=== PATIENT | male | born 1960 | race Caucasian/White ===

== ENCOUNTER 2019-06-01 11:31 | Outpatient (CLI) | payer BC | END 2019-06-01 11:32 | disposition home or self-care (01) | LOC: CTENTCT 11:31 | PROVIDERS: ATTEND Otolaryngology Plastic Surgery within the Head & Neck | DX: J34.2 Deviated nasal septum (principal) | CPT/HCPCS: 70486 ==

== ENCOUNTER 2019-06-14 13:53 | Day surgery (SDC) | payer BC ==
[2019-06-13 10:55] VITALS: BMI 25.7
[2019-06-14] MEDS ORDERED: Oxymetazoline HCl 0.05% ( 15 ML ) ONE (14:58)
[2019-06-14] MEDS ORDERED: Fentanyl 100 MCG/2 ML VIAL ONE ×2 (15:24→17:51)
[2019-06-14] MEDS ORDERED: Lidocaine 1% w/Epinephrine 1:100K 20 ML VIAL ONE (15:27)
[2019-06-14] MEDS ORDERED: Bacitracin Zinc Ointment 30 gm TUBE ONE (15:49)
--- NOTE | 2019-06-15 11:20 | OP ---
DATE OF PROCEDURE: 06/14/2019 PREOPERATIVE DIAGNOSES: 1. Chronic rhinosinusitis. 2. Nasal septal deviation. 3. Bilateral inferior turbinate hypertrophy. 4. Bilateral nasal polyposis. POST OPERATIVE DIAGNOSES: 1. Chronic rhinosinusitis. 2. Nasal septal deviation. 3. Bilateral inferior turbinate hypertrophy. 4. Bilateral nasal polyposis. PROCEDURES PERFORMED: 1. Bilateral endoscopic total ethmoidectomies. 2. Bilateral endoscopic maxillary antrostomies. 3. Bilateral endoscopic sphenoidotomies. 4. Nasal septoplasty. 5. Bilateral inferior turbinate submucosal resection and coblation. ESTIMATED BLOOD LOSS: 50 mL. COMPLICATIONS: None. ANESTHESIA: GETA. PROCEDURE IN DETAIL: Patient was taken to the operating room and placed supine on the table. General endotracheal anesthesia was obtained by the anesthesia staff. Tube was secured in the left lower lip. Patient was then placed in the beach chair position, and Afrin pledgets were placed in the nasal cavity. Injections of 1% lidocaine with 1:100,000 epinephrine were made into the nasal septum as well as the inferior turbinates. Patient was then prepped and draped in standard surgical fashion for nasal surgery. Following this, the Afrin pledgets were removed. A Blackey incision was made on the left nasal septum. Submucoperichondrial dissection was performed. The deviated portions of the septum included portions of the cartilage and the bony septum. These isolated areas were removed using 3 cutting rongeurs. There was noted to be a large dorsal and caudal strut, left intact for support of the nose. The mucoperichondrial flaps were then reapproximated using a 4-0 gut stitch. Any straight pieces of cartilage were crushed prior to this and placed between the mucoperichondrial flaps. Following this, the inferior turbinates were then punctured with a submucosal coblation wand, and submucosal coblations were performed of multiple areas of the inferior portion of the anterior inferior turbinate. Please note that the submucosal microdebrider was used to submucosally resect the anterior and inferior portions of the inferior turbinates bilaterally. Following this, the 0-degree scope was advanced into the middle meatus. Large middle turbinate rg bullosa deformities were identified and vertical incisions were made on the middle turbinate with a sickle knife. Following this, the lateral portion of the middle turbinate was resected using the 0-degree microdebrider and the straight Blakesley forceps. Following this, large nasal polyps were found protruding from the maxillary sinus and ethmoidal sinuses and were nearly completely obstructing the posterior nasal cavity bilaterally. Polyps were removed using the microdebrider and straight Blakesley forceps. Following this, the middle turbinates were medialized and the uncinate process was anteriorly fractured using a ball-ended probe bilaterally. Following this, the uncinate process was removed using the 0-degree microdebrider and up-biting microdebrider bilaterally. Following this, the ethmoidal bulla was identified and was punctured on its medial and inferior aspect using the 0-degree microdebrider. Following this, the ethmoidal bulla and anterior ethmoidal cells were opened using up-biting Blakesley forceps and the 0-degree microdebrider. Following this, the grand lamella was identified and was punctured into the posterior ethmoidal cells. Working from posterior to anterior, the ethmoidal cells were opened in a mucosal sparing technique. Multiple nasal polyps were removed throughout the ethmoidal sinuses bilaterally. Following this, the sphenoid sinuses were approached through the previous ethmoidectomies, where the anterior face of the sphenoid sinus was identified and was punctured using the 0-degree microdebrider bilaterally. Following this, the sphenoid sinus ostia were widened medially and inferiorly with the 0-degree microdebrider bilaterally. Following this, 45-degree endoscope along with the up-biting microdebrider were used to further open the frontal recess and frontal sinus ostia bilaterally. Nasal polyps and purulence were encountered in the frontal sinus bilaterally. Following this, the natural maxillary sinus ostia were identified and was widened using the curved microdebrider. Multiple nasal polyps were removed from the maxillary sinus bilaterally. Following this, the PROPEL nasal stents were placed within the maxillary sinus ostia. The nasal cavity was irrigated. Mirapex was placed within the middle meatus. Erazo splints were placed and secured. The patient tolerated the procedure well. Job ID: [id number]
== END 2019-06-14 18:55 | disposition home or self-care (01) ==
LOC: SDC 13:53
PROVIDERS: ATTEND Otolaryngology Plastic Surgery within the Head & Neck
PROC: 09BT8ZZ Excision of Left Frontal Sinus, Via Natural or Artificial Opening Endoscopic (ICD-10-PCS; principal; 2019-06-14)
PROC: 099Q8ZZ Drainage of Right Maxillary Sinus, Via Natural or Artificial Opening Endoscopic (ICD-10-PCS; principal; 2019-06-14)
PROC: 09BQ8ZZ Excision of Right Maxillary Sinus, Via Natural or Artificial Opening Endoscopic (ICD-10-PCS; principal; 2019-06-14)
PROC: 099S8ZZ Drainage of Right Frontal Sinus, Via Natural or Artificial Opening Endoscopic (ICD-10-PCS; principal; 2019-06-14)
PROC: 099R8ZZ Drainage of Left Maxillary Sinus, Via Natural or Artificial Opening Endoscopic (ICD-10-PCS; principal; 2019-06-14)
PROC: 09BS8ZZ Excision of Right Frontal Sinus, Via Natural or Artificial Opening Endoscopic (ICD-10-PCS; principal; 2019-06-14)
PROC: 09SM0ZZ Reposition Nasal Septum, Open Approach (ICD-10-PCS; principal; 2019-06-14)
PROC: 099U8ZZ Drainage of Right Ethmoid Sinus, Via Natural or Artificial Opening Endoscopic (ICD-10-PCS; principal; 2019-06-14)
PROC: 099V8ZZ Drainage of Left Ethmoid Sinus, Via Natural or Artificial Opening Endoscopic (ICD-10-PCS; principal; 2019-06-14)
PROC: 09BR8ZZ Excision of Left Maxillary Sinus, Via Natural or Artificial Opening Endoscopic (ICD-10-PCS; principal; 2019-06-14)
PROC: 09BL8ZZ Excision of Nasal Turbinate, Via Natural or Artificial Opening Endoscopic (ICD-10-PCS; principal; 2019-06-14)
PROC: 099W8ZZ Drainage of Right Sphenoid Sinus, Via Natural or Artificial Opening Endoscopic (ICD-10-PCS; principal; 2019-06-14)
PROC: 099X8ZZ Drainage of Left Sphenoid Sinus, Via Natural or Artificial Opening Endoscopic (ICD-10-PCS; principal; 2019-06-14)
PROC: 099T8ZZ Drainage of Left Frontal Sinus, Via Natural or Artificial Opening Endoscopic (ICD-10-PCS; principal; 2019-06-14)
DX: J32.9 Chronic sinusitis, unspecified (principal); J34.2 Deviated nasal septum; J34.3 Hypertrophy of nasal turbinates; J33.9 Nasal polyp, unspecified; Z88.5 Allergy status to narcotic agent
CPT/HCPCS: 93005; 93010; J2001; J3010

== ENCOUNTER 2021-11-24 10:12 | Outpatient (CLI) | payer BC | END 2021-11-24 10:13 | disposition home or self-care (01) | LOC: TBSIIMAG 10:12 | PROVIDERS: ATTEND Neurological Surgery | DX: M47.26 Other spondylosis with radiculopathy, lumbar region (principal) | CPT/HCPCS: 72148 ==

== ENCOUNTER 2022-11-17 07:40 | Outpatient (CLI) | payer BC | END 2022-11-17 07:41 | disposition home or self-care (01) | LOC: TBSIIMAG 07:40 | PROVIDERS: ATTEND Specialist | DX: M51.16 Intervertebral disc disorders with radiculopathy, lumbar region (principal); M47.26 Other spondylosis with radiculopathy, lumbar region; M48.061 Spinal stenosis, lumbar region without neurogenic claudication; K60.2 Anal fissure, unspecified; M51.37 Other intervertebral disc degeneration, lumbosacral region | CPT/HCPCS: 72141; 72148 ==

== ENCOUNTER 2023-06-22 10:55 | Outpatient (CLI) | payer BC | END 2023-06-22 10:56 | disposition home or self-care (01) | LOC: SCSMRI 10:55 → MRI 10:56 | PROVIDERS: ATTEND Neurological Surgery | DX: G93.0 Cerebral cysts (principal) | CPT/HCPCS: 70553; 82565 ==